=== PATIENT | female | born 1990 | race Caucasian/White ===

== ENCOUNTER 2017-04-27 00:09 | Emergency (ER) | payer SELFPAY ==
[~2017-04-27] VITALS: Ht 162.6 cm; Wt 72.6 kg
[~2017-04-27 00:09] MED LIST: IBUP200C3
[2017-04-27] MEDS ORDERED: LORazepam 2MG/ML-1ML VIAL IV ONE (00:45)
[2017-04-27] MEDS ORDERED: KETOROLAC TROMETH 30 MG/ML 1ML VIAL IV ONE (00:45)
[2017-04-27] MEDS ORDERED: SODIUM CHLORIDE 0.9% 1,000 ML IV ONE (02:00)
[2017-04-27 02:09] LABS: Basophils # (auto) 0.1 uL; Basophils % (auto) 1.2 % (0.0-2.0); Eosinophils # (auto) 0.3 uL; Eosinophils % (auto) 2.9 % (0.0-7.0); Hematocrit 39.7 % (36.0-46.0); Hemoglobin 13.5 g/dL (12.2-16.2); Lymphocytes # (auto) 2.1 uL; Lymphocytes % (auto) 18.9 % (10.0-50.0); Mean Corpuscular Hemoglobin 28.9 pg (28.0-32.0); Mean Corpuscular Volume 85.1 fL (80.0-100.0); Monocytes # (auto) 1.5 uL; Monocytes % (auto) 13.4 % (0.0-12.0); Neutrophils # (auto) 7.1 uL; Neutrophils % (auto) 63.6 % (37.0-80.0); Platelet Count (auto) 366 10^3/uL (140-450); Red Blood Cells 4.67 10^6/uL (4.0-5.20); Red Cell Distribution Width 13.2 % (11.8-14.3); White Blood Cell 11.2 10^3/uL (4.4-10.8)
[2017-04-27 02:21] LABS: INR 0.93 (0.9-1.15); Partial Thromboplastin Time 30.6 sec (22.64-33.71); Prothrombin Time 10.1 sec (9.37-12.3)
[2017-04-27 02:34] LABS: Calcium 8.5 mg/dL (8.5-10.1); Chloride 104 mmol/L (98-107); Potassium 4.1 mmol/L (3.5-5.1); Sodium 138 mmol/L (136-145)
[2017-04-27 02:36] LABS: Alanine Aminotransferase 68 U/L (13-56); Albumin 3.2 g/dL (3.4-5.0); Anion Gap 4 (5-15); Aspartate Aminotransferase 29 U/L (15-37); Blood Urea Nitrogen 12 mg/dL (7-18); Carbon Dioxide 30 mmol/L (21-32); GFR African American 117 mL/min; GFR Non-African American 97 mL/min; Glucose 74 mg/dL (74-106)
[2017-04-27 02:42] LABS: Alkaline Phosphatase 131 U/L (45-117); Bilirubin, Total 0.3 mg/dL (0.2-1.0); Total Protein 7.1 g/dL (6.4-8.2)
[2017-04-27 05:43] VITALS: BP 108/60
== END 2017-04-27 05:47 | disposition home or self-care (01) ==
LOC: ER 00:09 → EDBD 00:09 → ER 05:47
DX: R07.89 Other chest pain (principal)
CPT/HCPCS: 36415; 71045; 80053; 81025; 83880; 84484; 84702; 85025; 85379; 85610; 85730; 93005; 94761; 96361; 96374; 96375; 99285; J1885; J2060; J7030

== ENCOUNTER 2024-01-30 16:58 | Emergency (ER) | payer MEDICAID ==
[~2024-01-30] VITALS: Ht 157.5 cm; Wt 68.1 kg
[2024-01-30 17:02] VITALS: BP 119/78; PULSE 87; RESP 20; O2SAT 100
--- NOTE | 2024-01-30 17:06 | ED.PDOC ---
GI ASSESSMENT HPI Comments 34 y.o female presents to the ED via EMS for a chief complaint of diffused abdominal pain associated with constipation that started one month ago. Patient describes pain as sharp, constant and states new onset symptoms of nausea and vomiting x 1 day ago. Patient states she has not had a bowel movement for over twenty-two days. Patient denies history of endometriosis, fibroids or ovarian cysts. Patient's [facility] was 01/23/24. No bleeding, fever, chills reported. Chief Complaint: Abdominal Pain Time Seen by MD: 17:02 Primary Care Provider: CRISTIN Reviewed Notes: Nurses Notes, Public Relations Analyst Notes, Medications, Allergies Allergies: Coded Allergies: NO KNOWN ALLERGIES (Unverified , 07/13/10) Home Meds Reported Medications Ibuprofen (Ibuprofen) 200 Mg Cap 07/13/10 Information Source: Patient, Emergency Med Personnel Mode of Arrival: EMS Timing: Months (1) Duration: Since onset Quality: Sharp Vomitus: Hard Stool: Empty Severity: Severe Recent: None Recent Hx of: None Pain Location: Diffuse Modifying Factors: Nothing Associated sign and symptoms: Nausea, Vomiting, Constipation, Abdominal Pain Past Medical History PAST MEDICAL HISTORY: Anxiety, Denies Past Medical History (Other): Recent history of constipation Surgical History: Denies all surgeries BREWERY WORKER History: Denies all BREWERY WORKER Hx Family History Family History: Unknown Social History Smoker: Non-Smoker Alcohol: Occasionally Drugs: Denies Drug Use Lives In: Home Constitutional: denies: chills, diaphoresis, fatigue, fever, malaise, sweats, weakness, others EENTM: denies: blurred vision, double vision, ear bleeding, ear discharge, ear drainage, ear pain, ear ringing, eye pain, eye redness, hearing loss, mouth pain, mouth swelling, nasal discharge, nose bleeding, nose congestion, nose pain, photophobia, tearing, throat pain, throat swelling, voice changes, others Respiratory: denies: cough, hemoptysis, orthopnea, SOB at rest, shortness of breath, SOB with excertion, stridor, wheezing, others Cardiovascular: denies: chest pain, dizzy spells, diaphoresis, Dyspnea on e xertion, edema, irregular heart beat, left arm pain, lightheadedness, palpitations, PND, syncope, others Gastrointestinal: reports: abdominal pain, constipated, nausea, vomiting; denies: abdomen distended, blood streaked bowels, diarrhea, dysphagia, difficulty swallowing, hematemesis, melena, poor appetite, poor fluid intake, rectal bleeding, rectal pain, others Genitourinary: denies: abnormal vagina bleeding, burning, dyspareunia, dysuria, flank pain, frequency, hematuria, incontinence, pain, , vagina discharge, urgency, others Neurological: denies: dizziness, fainting, headache, left sided numbness, left sided weakness, numbness, paresthesia, pre-existing deficit, right sided numbness, right sided weakness, seizure, speech problems, tingling, tremors, weakness, others Musculoskeletal: denies: back pain, gout, joint pain, joint swelling, muscle pain, muscle stiffness, neck pain, others Integumetry: denies: bruises, change in color, change in hair/nails, dryness, laceration, lesions, lumps, rash, wounds, others Allergic/Immunocompromised: denies: Difficulty Healing, Frequent Infections, Hives, Itching, others Hematologic/Lymphatic: denies: anemia, blood clots, easy bleeding, easy bruising, swollen glands, others Endocrine: denies: excessive hunger, excessive sweating, excessive thirst, excessive urination, flushing, intolerance to cold, intolerance to heat, unexplained weight gain, unexplained weight loss, others Psychiatric: denies: anxiety, bipolar disorder, depression, hopeless, panic disorder, schizophrenia, sleepless, suicidal, others All Other Systems: Reviewed and Negative Physical Exam General Appearance: Moderate Distress (Patient appears to be in moderate distress at time of evaluation.), Normal HEENT: Normal ENT Inspection, Pharynx Normal, TMs Normal Neck: Full Range of Motion, Non-Tender, Normal, Normal Inspection Respiratory: Chest Non-Tender, Lungs Clear, No Accessory Muscle Use, No Respiratory Distress, Normal Breath Sounds Cardiovascular: No Edema, No JVD, No Murmur, No Gallop, Normal Peripheral Pulses, Regular Rate/Rhythm Breast Exam: Deferred Gastrointestinal: Diffuse, Tenderness (Diffuse bilateral lower abdominal pain throughout the periumbilical region. Abdomen is mildly rigid. No signs of trauma. No pulsatile masses.) Genitalia: Deferred Pelvic: Deferred Rectal: Deferred Extremities: No calf tenderness, Normal capillary refill, Normal inspection, Normal range of motion, Non-tender, No pedal edema Musculoskeletal : Apperance: Normal Neurologic: Alert, No Motor Deficits, No Sensory Deficits Cerebellar Function: Normal Reflexes: Normal Skin: Dry, Normal Color, Warm Lymphatic: No Adenopathy Was a procedure done? Was a procedure done?: No GI differential Dx Differential Diagnosis: Bowel Obstruction, Cholangitis, Cholecystitis, Constipation, Diverticular disease, Gastritis/PUD, Gastroenteritis, Inflammatory BD, Ischemic Bowel, Trauma intraabdominal, Viral X-Ray, Labs, Meds, VS Vital Signs Date Time Temp Pulse Resp B/P (MAP) Pulse Ox O2 Delivery O2 Flow Rate FiO2 01/30/24 17:02 98.7 87 20 119/78 (92) 100 Lab Test 01/30/24 17:55 Range/Units White Blood Count 8.0 4.4-10.8 10^3/uL Red Blood Count 4.74 4.0-5.20 10^6/uL Hemoglobin 14.1 12.2-16.2 g/dL Hematocrit 41.9 36.0-46.0 % Mean Corpuscular Volume 88.4 80.0-100.0 fL Mean Corpuscular Hemoglobin 29.8 28.0-32.0 pg Mean Corpuscular Hemoglobin Concent 33.7 32.0-36.0 g/dL Red Cell Distribution Width 12.8 11.8-14.3 % Platelet Count 319 140-450 10^3/uL Mean Platelet Volume 7.0 6.9-10.8 fL Neutrophils (%) (Auto) 57.5 37.0-80.0 % Lymphocytes (%) (Auto) 27.1 10.0-50.0 % Monocytes (%) (Auto) 9.8 0.0-12.0 % Eosinophils (%) (Auto) 4.6 0.0-7.0 % Basophils (%) (Auto) 1.0 0.0-2.0 % Neutrophils # (Auto) 4.6 1.6-8.6 10 ^3/uL Lymphocytes # (Auto) 2.2 0.4-5.4 10 ^3/uL Monocytes # (Auto) 0.8 0-1.3 10 ^3/uL Eosinophils # (Auto) 0.4 0-0.8 10 ^3/uL Basophils # (Auto) 0.1 0-0.2 10 ^3/uL Nucleated Red Blood Cells 0.1 % Sodium Level 142 136-145 mmol/L Potassium Level 4.3 3.5-5.1 mmol/L Chloride Level 109 H 98-107 mmol/L Carbon Dioxide Level 23 20-31 mmol/L Anion Gap 10 5-15 Blood Urea Nitrogen 5 L 9-23 mg/dL Creatinine 0.69 0.550-1.02 mg/dL Glomerular Filtration Rate Calc 115 >90 mL/min BUN/Creatinine Ratio 7.2 L 10.0-20.0 Serum Glucose 87 74-106 mg/dL Calcium Level 9.6 8.7-10.4 mg/dL Total Bilirubin 0.4 0.2-1.0 mg/dL Aspartate Amino Transferase (AST) 24 13-40 U/L Alanine Aminotransferase (ALT) 77 H 7-40 U/L Alkaline Phosphatase 102 46-116 U/L Troponin I High Sensitivity < 3 L </=34 ng/L Total Protein 6.7 5.7-8.2 g/dL Albumin 4.4 3.2-4.8 g/dL Lipase 22 12-53 U/L X-Ray, Labs, Meds, VS Comment All studies performed the ED were evaluated by me personally. Laboratories were unremarkable for any systemic process, but imaging studies revealed a large stool burden with probable impaction as well as gallbladder wall thickening. Nursing attempted multiple times to locate the patient to dispensed medications, but it appears the patient has eloped from the facility. Time of 1ST Reevaluation: 21:14 Reevaluation 1ST: Unchanged Consultation: PCP Patient Education/Counseling: Diagnosis, Treatment, Prognosis Family Education/Counseling: Diagnosis, Treatment, No Family Present Departure 1 Departure Time of Disposition: 21:14 Impression: Primary Impression: Constipation Additional Impressions: Fecal impaction of colon Thickening of wall of gallbladder Disposition: 07 LEFT AWOL/ELOPED Condition: Poor Discharged With: Self Critical Care Note Critical Care Time?: No Stability Stability form required: No I personally scribed for MANNIE FROST PAC ([email or web address]) on 01/30/24 at 17:06. Electronically submitted by Izzy Dudley ([facility]). MANNIE FROST PAC Jan 30, 2024 17:06
--- NOTE | 2024-01-30 17:48 | DVH ---
Exam: CT CT AB PEL WO CON-NO ORAL OR IV History: Diffuse bilateral lower abdominal pain Comparison Study: None available at time of dictation. Technique: Multidetector spiral CT of the abdomen was performed from lung bases to pubic symphysis. Imaging was performed without IV contrast. Axial, coronal and sagittal multiplanar reformats were ob tained from the axial data set by the technologist. Radiation Dose : 1. Abdomen/Pelvis: CTDIvol 6 mGy, DLP 328 mGy*cm. Findings: Evaluation of solid organs is limited due to lack of intravenous contrast use. Lung Bases: No acute or significant lung base finding. Normal heart size. No pleural or pericardial effusion. Liver: The liver is normal in size. No focal lesions. Gallbladder and Biliary Tree: Calcified gallstone measuring 2.6 cm. Mildly distended gallbladder. Spleen: Unremarkable Pancreas: The pancreas is grossly normal in appearance. Adrenal Glands: Unremarkable Kidneys: Kidneys are grossly normal without calculi or hydronephrosis. Bladder: Grossly unremarkable for degree of distention. Bowel: The stomach is grossly normal in appearance. Severe fecal retention throughout the colon with evidence of fecal impaction. The appendix is not visualized; however, no secondary findings of acute appendicitis identified. Ascites: Absent Lymphadenopathy: No mesenteric, retroperitoneal or periportal lymphadenopathy. Abdominal Wall and Mesentery: Unremarkable. Vasculature: The visualized abdominal aorta is normal in size and caliber. Evaluation of abdominal a nd pelvic vessels is limited due to lack of intravenous contrast. Pelvic Organs: Unremarkable Musculoskeletal: No aggressive focal bony lesions, acute fractures or dislocation. IMPRESSION: Severe fecal retention throughout the colon with evidence of fecal impaction. Mildly distended gallbladder demonstrating large 2.6 cm calcified gallstone. END IMPRESSION:
[2024-01-30 18:40] LABS: Basophils # (auto) 0.1 10 ^3/uL (0-0.2); Eosinophils # (auto) 0.4 10 ^3/uL (0-0.8); Eosinophils % (auto) 4.6 % (0.0-7.0); Hematocrit 41.9 % (36.0-46.0); Hemoglobin 14.1 g/dL (12.2-16.2); Lymphocytes # (auto) 2.2 10 ^3/uL (0.4-5.4); Lymphocytes % (auto) 27.1 % (10.0-50.0); Mean Corpuscular Hemoglobin 29.8 pg (28.0-32.0); Mean Corpuscular Hgb Conc. 33.7 g/dL (32.0-36.0); Mean Corpuscular Volume 88.4 fL (80.0-100.0); Monocytes # (auto) 0.8 10 ^3/uL (0-1.3); Monocytes % (auto) 9.8 % (0.0-12.0); Neutrophils # (auto) 4.6 10 ^3/uL (1.6-8.6); Neutrophils % (auto) 57.5 % (37.0-80.0); Nucleated Red Blood Cells % 0.1 %; Platelet Count (auto) 319 10^3/uL (140-450); Red Blood Cells 4.74 10^6/uL (4.0-5.20); Red Cell Distribution Width 12.8 % (11.8-14.3)
[2024-01-30 18:52] LABS: Albumin 4.4 g/dL (3.2-4.8); Alkaline Phosphatase 102 U/L (46-116); Anion Gap 10 (5-15); Aspartate Aminotransferase 24 U/L (13-40); BUN/Creatinine Ratio 7.2 (10.0-20.0); Bilirubin, Total 0.4 mg/dL (0.2-1.0); Calcium 9.6 mg/dL (8.7-10.4); Carbon Dioxide 23 mmol/L (20-31); Glucose 87 mg/dL (74-106); Lipase 22 U/L (12-53); Potassium 4.3 mmol/L (3.5-5.1); Sodium 142 mmol/L (136-145); Total Protein 6.7 g/dL (5.7-8.2)
[2024-01-30 18:56] LABS: Alanine Aminotransferase 77 U/L (7-40); Blood Urea Nitrogen 5 mg/dL (9-23); Chloride 109 mmol/L (98-107)
[2024-01-30] MEDS ORDERED: LACTULOSE 20Gm/30ML SOLN PO ONE (19:45)
[2024-01-30] MEDS ORDERED: FLEET ENEMA(ADULT) 135 ML PR ONE ×2 (19:45)
== END 2024-01-30 21:15 | disposition left against medical advice (07) ==
LOC: EDUNIT# 16:58 → EDBD 16:58 → ER 17:02
DX: K56.41 Fecal impaction (principal); K80.20 Calculus of gallbladder without cholecystitis without obstruction; Z79.899 Other long term (current) drug therapy
CPT/HCPCS: 36415; 74176; 80053; 83690; 84484; 85025